=== PATIENT | female | born 1950 | race African-American/Black ===

== ENCOUNTER 2016-07-04 04:27 | Inpatient (IN) | payer BC, OTHER ==
[2016-07-02 12:33] LABS: HEMATOCRIT 38.1 % (36.0-48.0); HEMOGLOBIN 12.6 g/dL (12.0-16.0)
[2016-07-02 12:46] LABS: BUN (BLOOD UREA NITROGEN) 14 MG/DL (6-23); CALCIUM, SERUM 9.1 MG/DL (8.5-10.4); CHLORIDE, SERUM 103 MMOL/L (96-112); CO2 (CARBON DIOXIDE) 28 MMOL/L (24-34); CREATININE 1.02 MG/DL (0.55-1.02); GFR AFRICAN AMERICAN 66 ML/MIN (>=60); GFR NON AFRICAN AMERICAN 57 ML/MIN (>=60); GLUCOSE, SERUM 115 MG/DL (60-99); SODIUM, SERUM 141 MMOL/L (135-148)
--- NOTE | ~2016-07-04 | OP ---
Record Of Operation [facility] [address] [place]. [address] NAME: OLIVIA BYRNE : 46 STATUS : ADM IN PAT#: [id number] AGE: 65 ADM/REG DATE : 07/04/16 MR#: [id number] REPORT SERV DATE: 07/07/16 DICTATED BY: KARAN OREILLY DATE: 07/04/16 REPORT STATUS : Draft TRANSCRIBED BY: MODJuan DATE: 07/04/16 DATE OF PROCEDURE: 07/04/2016 PREOPERATIVE DIAGNOSES: 1. Grade 1 spondylolisthesis, L4-5. 2. Severe spinal stenosis, L4-5. POSTOPERATIVE DIAGNOSES: 1. Grade 1 spondylolisthesis, L4-5. 2. Severe spinal stenosis, L4-5. PROCEDURES: 1. Microscopic navigation-assisted surgery. 2. Anterior retroperitoneal approach for an oblique lumbar diskectomy and interbody Clydesdale cage insertion, interbody fusion at L4-5. 3. Posterior percutaneous Voyager instrumentation at L4-5. PHLEBOTOMY TECH: Arturo Hutson. ANESTHESIA: General. BLOOD LOSS: Less than 50 mL. INDICATIONS: Indications for surgery and risks were explained. They are listed in the last office note as well as history and physical. See that for detail. OPERATION IN DETAIL: Antibiotic prophylaxis given. Neurophysiology monitoring leads inserted. The patient was brought to the operative suite where general anesthetic including endotracheal intubation was administered. Gibson catheter was placed with sterile technique. The patient was placed in the lateral decubitus position. The left side was up. An axillary roll was placed. A bolster was placed at the iliac crest. Hips were left in neutral alignment, and knees were minimally extended. The trunk was then very secured and carefully taped to the bed across the top of the chest, across the iliac crest. Not only was the trunk firmly secured to the table, but also the diagnostic area including the legs also carefully taped. Isolation drapes were placed. The left side of the abdomen, left flank, left thoracolumbar spine were scrubbed with Hibiclens solution. DuraPrep was painted and sterile drapes were applied. Because of the complexity of the surgery and the need to identify correct level of surgery intraoperatively, as well as desire to carry out the safest and most precise dissection, I felt that intraoperative navigation was mandatory. A small stab wound was carried out over the left posterosuperior iliac spine. Percutaneous pin with navigational frame attached was inserted in the PSIS. Intraoperative CT scan with O-arm was obtained. CT information was used to register the navigational system. Record Of Operation [facility] [address] [address] NAME: OLIVIA BYRNE : 48 STATUS : ADM IN PAT#: [id number] AGE: 65 ADM/REG DATE : 07/04/16 MR#: [id number] REPORT SERV DATE: 07/07/16 DICTATED BY: KARAN OREILLY DATE: 07/04/16 REPORT STATUS : Draft TRANSCRIBED BY: SOLEDAD DATE: 07/04/16 With navigational assistance, I identified the L4-5 level. Approximately 7 cm anterior to the disk space at L4-5 and parallel with the disk space, I carried out a 3.5 to 4 cm slightly oblique skin incision over the left flank. The subcutaneous tissue was sharply dissected. The external oblique muscle opened bluntly followed by opening of the internal oblique muscle bluntly. I then was able to palpate with my index finger directly into the retroperitoneum. I identified the psoas muscle, the transverse process at L5, as well as the anterior border of the psoas. I then placed a lighted blunt retractor and my finance assistant retracted the psoas posteriorly while my hand and the blunt retractor remained anteriorly guarding the vessels. A navigated initial dilator was placed between the two retractors. I docked at the junction of zone 1 and 2 and after placement of the retractor, the muscle dilators were inserted followed by placement of a tubular retractor attached to an arm mount table. The microscope was sterilely draped and used throughout the remainder of the procedure. We used stimulation and stimulated inside the circumference of the retractor. No abnormalities were found. I carried out a rectangular annulectomy. After the annulectomy, a diskectomy was carried out with curettes, rongeurs, and hand instruments. I did start at the anterolateral corner moving across the disk space. I would also redirect my hand posteriorly using an orthogonal maneuver. As I crossed through the opposite contralateral side, I also released the contralateral annulus. After the diskectomy and the endplate cartilage was removed, we then carried out trials using again the same start of an anterolateral approach initially directing posteriorly with our hands and crossing the interbody space. Using the orthogonal maneuver, wounds were irrigated. The final implant, we chose a 12-degree lordotic, 12 degrees in height, 50 mm in length Clydesdale cage. The cage was filled with extra-small dosage of bone protein as well as allograft. Cage was then inserted into the proper position again using the same orthogonal maneuver and after being properly positioned, intraoperative x-ray revealed excellent position of the implants. The retractor was then slowly withdrawn. No abnormality was found. There was no tear within the esophagus. There implant complications. After removing the retractor completely, the internal and external obliques were closed with interrupted 0 PDS suture. The subcutaneous tissue was closed with 2-0 Vicryl suture. 2-0 vertical mattress nylon suture was used for skin closure. Sterile dressings were applied. The patient was then repositioned into a prone position. Bony prominences were carefully padded. Thoracolumbar spine was scrubbed with Hibiclens solution. DuraPrep was painted. Sterile drapes were applied. Once again, we re-registered the navigational system. Again with navigational assistance, just lateral to the facet joints, I carried out approximately a 2.5 to 3 cm skin incision to allow percutaneous placement of the screws and love. I used a Voyager pedicle tap and screw plant operator/shift supervisor. I tapped the pedicles at L4 and 5 bilaterally. Polyaxial Voyager screws were inserted bilaterally at L4 and 5. After all of the hardware was placed, next after placing the transpedicular screws with screw extenders, we placed a love into the top portion of the screw extenders, reduced it into the tulip of the pedicle screw. The set screw was inserted and tightened with a torque wrench. The screw extenders were removed. Intraoperative CT scan with O-arm was repeated showing good position of all implants, good muslim of the Record Of Operation [facility] [address]. [place]. [address] NAME: OLIVIA BYRNE : 46 STATUS : ADM IN [facility]#: [id number] AGE: 65 ADM/REG DATE : 07/04/16 MR#: [id number] REPORT SERV DATE: 04/10/17 DICTATED BY: KARAN OREILLY DATE: 07/04/16 REPORT STATUS : Draft TRANSCRIBED BY: MODL DATE: 07/04/16 disk height, and good muslim of lordosis. The wounds were closed with usual standard closure. Sterile dressings were applied. The patient was returned to supine position, awakened, extubated, and taken to recovery room in stable condition having tolerated the procedure well. Sponge, needle, and instrument counts were correct. No intraoperative complications noted. /SOLEDAD Karan Oreilly D.O. / [id number] CC: Karan Oreilly D.O.
--- NOTE | ~2016-07-04 | PREOPHP ---
PreOp History and Physical [facility] [address] [place]. [address] NAME: OLIVIA BYRNE : 46 STATUS : DIS IN PAT#: [id number] AGE: 65 ADM/REG DATE : 07/04/16 MR#: [id number] REPORT SERV DATE: 07/16/16 DICTATED BY: KARAN OREILLY DATE: 07/16/16 REPORT STATUS : Draft TRANSCRIBED BY: SOLEDAD DATE: 07/16/16 CHIEF COMPLAINT: Back pain, leg pain. HISTORY OF PRESENT ILLNESS: This is a very pleasant lady who has grade 1 spondylolisthesis, severe spinal stenosis as diagnosed by x-ray and MRI. She has tried conservative care and failed. The patient was brought to surgery for decompression and fusion with stabilization and per the surgical permit. She has tried conservative care and failed. Risks, benefits, alternatives, and expectations of the surgery have been explained. They are listed in the office notes; see that for detail. PAST MEDICAL HISTORY: Exogenous obesity, hypertension, and osteoarthritis. PAST SURGICAL HISTORY: Listed in the chart. MEDICATIONS LISTED: Listed in the chart. ALLERGIES: NONE. SOCIAL HISTORY AND FAMILY HISTORY: Listed in the addendum of the chart; see that for detail. PHYSICAL EXAMINATION: GENERAL: She is alert, cooperative, well oriented. Ambulates independently. HEENT: Grossly normal. LUNGS: Clear to auscultation. HEART: Regular rate and rhythm. ABDOMEN: Soft with good bowel sounds. No peritoneal signs are noted. MUSCULOSKELETAL: The spine has some deformity as she does have a forward tilt of the trunk. She has limited range of motion due to the pain. She has negative straight leg raising signs, negative femoral nerve stretch test. Patellar reflexes and Achilles reflexes are absent. Her motor strength is weak in the L4 and L5 innervated musculature. She has essentially a 4/5 strength. No sensory deficits noted. No evidence of myelopathy noted. Toes are downgoing. No ankle clonus found. Orthopedically, she has no pain with moving hips, knees, or ankles. There are good pulses in all four extremities. No abnormal skin lesions are found. ASSESSMENT AND RECOMMENDATIONS: As listed above. KARL/SOLEDAD Karan Oreilly D.O. / [id number] PreOp History and Physical [address] [address] NAME: OLIVIA BYRNE : 46 STATUS : DIS IN PAT#: [id number] AGE: 65 ADM/REG DATE : 07/04/16 MR#: [id number] REPORT SERV DATE: 07/16/16 DICTATED BY: KARAN OREILLY DATE: 07/16/16 REPORT STATUS : Draft TRANSCRIBED BY: MODL DATE: 07/16/16 CC: Beau Leung N.P.
--- NOTE | ~2016-07-04 | CN ---
Consultation Report [facility] [address] [place]. [address] NAME: OLIVIA BYRNE : 46 STATUS : ADM IN PAT#: [id number] AGE: 65 ADM/REG DATE : 07/04/16 MR#: [id number] REPORT SERV DATE: 07/04/16 DICTATED BY: TERE BROWER DATE: 07/04/16 REPORT STATUS : Draft TRANSCRIBED BY: MODL DATE: 07/04/16 CONSULTATION DATE OF CONSULTATION: 07/04/2016 REASON FOR CONSULTATION: Medical management of hypertension and diabetes. HISTORY OF PRESENT ILLNESS: The patient is a 65-year-old female. She has a past medical history significant for diabetes mellitus, insulin requiring. She also has history of hypertension, hyperlipidemia. She is status post spinal surgery today. She is being seen in the room approximately 15 minutes after arriving from postop. She is able to respond to some questions but the majority of the history is from her sister. The patient has had the above medical problems for some time as the patient family states they have been reasonably well controlled with no significant problems. She is in some pain postop and not experiencing any nausea or vomiting. She is without complaints at present. PAST MEDICAL HISTORY: As described above. PAST SURGICAL HISTORY: She has had this surgery as well as a knee repair in the past and she has had epidurals in the past. CURRENT MEDICATIONS: Aspirin 81; Tenormin 50; docusate 300; Neurontin 300 t.i.d.; hydrochlorothiazide 50; Apresoline 25 b.i.d.; Lantus 45 units a day; Humalog sliding scale, she states she averages approximately 5 to 8 units; Tradjenta 5 mg daily; lisinopril 20; Mevacor 40; Mobic 15; Percocet; potassium 10; and Desyrel 100. ALLERGIES: ARE TO TETANUS AND DIPHTHERIA AND LATEX. FAMILY HISTORY: Both parents . Mother had bone cancer. Father had brain bleeds. SOCIAL HISTORY: Positive tobacco use. Five or so cigarettes per day. No significant EtOH. REVIEW OF SYSTEMS: The patient is currently complaining of back pain. No nausea or vomiting. No recent cardiac or pulmonary complaints. The remainder of her 10-point review of systems is negative. PHYSICAL EXAMINATION: VITAL SIGNS: Postop vitals are currently pending. GENERAL: She is awake, alert, no acute distress. HEENT: Grossly unremarkable. NECK: Supple. HEART: Regular rate and rhythm. LUNGS: Clear to auscultation. ABDOMEN: Nontender. Nondistended. Consultation Report [facility] [address]. [place]. [address] NAME: OLIVIA BYRNE : 46 STATUS : ADM IN PAT#: [id number] AGE: 65 ADM/REG DATE : 07/04/16 MR#: [id number] REPORT SERV DATE: 07/04/16 DICTATED BY: TERE BROWER DATE: 07/04/16 REPORT STATUS : Draft TRANSCRIBED BY: MODJuan DATE: 07/04/16 EXTREMITIES: Without edema. LABORATORY DATA: Sodium 144, potassium 3.7, chloride 109, CO2 of 27, BUN and creatinine 18 and 0.89 with a glucose of 161. White count 6.7, H and H are 10.7 and 33.0, and platelets are 209. ASSESSMENT: Chronic medical problems as listed above. PLAN: Thank you for the consultation. We will continue to follow. We will reduce her home long-acting insulin this evening until she is awake and eating normally. We will continue sliding scale as well. Continue the home medications as appropriate. APOILNARF/SOLEDAD Tere Brower M.D. / [id number] CC: Karan Muñoz D.O.
--- NOTE | ~2016-07-04 | DS ---
Discharge Summary [facility] [id number] [place]. [address] NAME: OLIVIA BYRNE : 46 STATUS : DIS IN PAT#: [id number] AGE: 65 ADM/REG DATE : 07/04/16 MR#: [id number] REPORT SERV DATE: 07/17/16 DICTATED BY: KARAN OREILLY DATE: 07/16/16 REPORT STATUS : Draft TRANSCRIBED BY: MODL DATE: 07/16/16 ADMISSION DATE: 07/04/2016 DISCHARGE DATE: 07/08/2016 ADMISSION DIAGNOSIS: Grade 1 spondylolisthesis, severe spinal stenosis, L4-5. PROCEDURES: Microscopic and navigational-assisted surgery with an oblique lateral diskectomy, interbody cage insertion, interbody fusion at L4-5 with posterior instrumentation. COMPLICATIONS: None. LAB AND X-RAY DATA: In the chart. HOSPITAL COURSE: She had admission day surgery which was uneventful. The patient was started on antibiotics immediate postop as well as given a preop dosage per the usual protocol. After 24 hours of antibiotic, they were stopped. She was on a SNAILER pump for the initial 12-14 hours and then converted to oral medication. A Gibson was stopped the following day after surgery. Postop day 1, she was having usual expected surgical pain, but was able to start physical therapy. There were no complications found. Strength of the lower extremities was normal. The patient continued to progress with physical therapy and by postop day 3, was doing quite well with independence and transferring, had normal bowel and bladder function. Neuro function was quite normal. She had returned to her preoperative diet and medications. DISPOSITION: Discharged home, to follow up in two weeks. Resume preop medicines and preop diet. She can shower. If any problems, call the office immediately. KARL/SOLEDAD Karan Oreilly D.O. / [id number] CC: Beau Leung N.P.
[~2016-07-04 04:27] MED LIST: APRES25 PO; ATEN50 PO; DOCUSOFT S100 MG PO; ENDOCET1 TAB PO; HALF81 PO; HUMALOG SC; HYDROCHLOROT50 MG PO; K-TABS10 MEQ PO; LANTUS SC; MEVACOR40 MG PO; MOBIC15 MG PO; NEUR300 PO; PRIN20 PO; TRADJENTA5 MG PO; TRAZ100 PO
[2016-07-04 10:34] LABS: BASOPHILS 0.2 %; BASOPHILS ABSOLUTE 0.01 10/3/uL (0.0-0.16); EOSINOPHILS 1.7 %; EOSINOPHILS ABSOLUTE 0.11 10/3/uL (0.0-0.53); HEMOGLOBIN 10.7 g/dL (12.0-16.0); IMMATURE GRANULOCYTES 1.2 %; IMMATURE GRANULOCYTES ABSOLUTE 0.08 10/3/uL (0.0-0.11); MANUAL DIFF NO %; MEAN CORPUS HGB CONC 32.4 g/dL (32.0-36.0); MEAN CORPUSCULAR HEMOGLOB 32.1 pg (26.0-34.0); MEAN CORPUSCULAR VOLUME 99.1 fL (80-100); MEAN PLATELET VOLUME 8.9 fL (9.2-13.0); MONOCYTES 7.1 %; MONOCYTES ABSOLUTE 0.47 10/3/uL (0.21-1.20); NEUTROPHILS 56.8 %; NEUTROPHILS ABSOLUTE 3.79 10/3/uL (2.02-8.40); PLATELET COUNT 209 10/3/uL (150-400); RBC DISTRIBUTION WIDTH 13.9 % (12.0-16.0); RED CELL COUNT 3.33 10/6/uL (4.0-5.6); WHITE BLOOD CELLS 6.7 10/3/uL (4.5-10.5)
[2016-07-04 10:43] LABS: CALCIUM, SERUM 8.3 MG/DL (8.5-10.4); CHLORIDE, SERUM 109 MMOL/L (96-112); CO2 (CARBON DIOXIDE) 27 MMOL/L (24-34); CREATININE 0.89 MG/DL (0.55-1.02); GFR AFRICAN AMERICAN 78 ML/MIN (>=60); GFR NON AFRICAN AMERICAN 67 ML/MIN (>=60); POTASSIUM, SERUM 3.7 MMOL/L (3.5-5.3); SODIUM, SERUM 144 MMOL/L (135-148)
[2016-07-04 10:44] LABS: BUN (BLOOD UREA NITROGEN) 18 MG/DL (6-23); GLUCOSE, SERUM 161 MG/DL (60-99)
[2016-07-05 05:14] LABS: BASOPHILS 0.1 %; BASOPHILS ABSOLUTE 0.01 10/3/uL (0.0-0.16); EOSINOPHILS 1.9 %; EOSINOPHILS ABSOLUTE 0.13 10/3/uL (0.0-0.53); HEMATOCRIT 34.4 % (36.0-48.0); HEMOGLOBIN 10.8 g/dL (12.0-16.0); IMMATURE GRANULOCYTES 0.3 %; IMMATURE GRANULOCYTES ABSOLUTE 0.02 10/3/uL (0.0-0.11); LYMPHOCYTES 16.8 %; LYMPHOCYTES ABSOLUTE 1.13 10/3/uL (0.67-4.30); MANUAL DIFF NO %; MEAN CORPUS HGB CONC 31.4 g/dL (32.0-36.0); MEAN CORPUSCULAR VOLUME 102.1 fL (80-100); MEAN PLATELET VOLUME 9.1 fL (9.2-13.0); MONOCYTES 9.4 %; MONOCYTES ABSOLUTE 0.63 10/3/uL (0.21-1.20); NEUTROPHILS 71.5 %; NEUTROPHILS ABSOLUTE 4.79 10/3/uL (2.02-8.40); PLATELET COUNT 221 10/3/uL (150-400); RBC DISTRIBUTION WIDTH 14.1 % (12.0-16.0); RED CELL COUNT 3.37 10/6/uL (4.0-5.6); WHITE BLOOD CELLS 6.7 10/3/uL (4.5-10.5)
[2016-07-05 05:35] LABS: BUN (BLOOD UREA NITROGEN) 15 MG/DL (6-23); CALCIUM, SERUM 8.5 MG/DL (8.5-10.4); CHLORIDE, SERUM 106 MMOL/L (96-112); CO2 (CARBON DIOXIDE) 29 MMOL/L (24-34); CREATININE 0.92 MG/DL (0.55-1.02); GFR AFRICAN AMERICAN 75 ML/MIN (>=60); GFR NON AFRICAN AMERICAN 64 ML/MIN (>=60); POTASSIUM, SERUM 4.2 MMOL/L (3.5-5.3); SODIUM, SERUM 144 MMOL/L (135-148)
[2016-07-05 05:40] LABS: GLUCOSE, SERUM 128 MG/DL (60-99)
[2016-07-06 06:14] LABS: BASOPHILS 0.1 %; BASOPHILS ABSOLUTE 0.01 10/3/uL (0.0-0.16); EOSINOPHILS 1.1 %; HEMATOCRIT 35.2 % (36.0-48.0); HEMOGLOBIN 11.2 g/dL (12.0-16.0); IMMATURE GRANULOCYTES 0.4 %; IMMATURE GRANULOCYTES ABSOLUTE 0.04 10/3/uL (0.0-0.11); LYMPHOCYTES ABSOLUTE 1.08 10/3/uL (0.67-4.30); MEAN CORPUS HGB CONC 31.8 g/dL (32.0-36.0); MEAN CORPUSCULAR HEMOGLOB 31.8 pg (26.0-34.0); MONOCYTES 11.5 %; MONOCYTES ABSOLUTE 1.04 10/3/uL (0.21-1.20); NEUTROPHILS 74.9 %; NEUTROPHILS ABSOLUTE 6.74 10/3/uL (2.02-8.40); PLATELET COUNT 210 10/3/uL (150-400); RBC DISTRIBUTION WIDTH 13.9 % (12.0-16.0); RED CELL COUNT 3.52 10/6/uL (4.0-5.6)
[2016-07-06 06:16] LABS: MANUAL DIFF NO %
[2016-07-06 06:28] LABS: BUN (BLOOD UREA NITROGEN) 12 MG/DL (6-23); CALCIUM, SERUM 8.8 MG/DL (8.5-10.4); CHLORIDE, SERUM 106 MMOL/L (96-112); CO2 (CARBON DIOXIDE) 28 MMOL/L (24-34); GFR AFRICAN AMERICAN 88 ML/MIN (>=60); GFR NON AFRICAN AMERICAN 76 ML/MIN (>=60); GLUCOSE, SERUM 128 MG/DL (60-99); POTASSIUM, SERUM 3.6 MMOL/L (3.5-5.3); SODIUM, SERUM 142 MMOL/L (135-148)
[2016-07-08] MEDS ORDERED: OXYCOD PO (16:25)
[2016-07-08] MEDS ORDERED: METHOC750B PO (16:26)
== END 2016-07-08 16:59 | disposition home or self-care (01) | DRG 454 ==
LOC: SDC/OF 04:27 → PACU 10:11 → 3SO 11:36
PROVIDERS: Hospitalist; Orthopaedic Surgery Orthopaedic Surgery of the Spine
PROC: 4A11X4G Monitoring of Peripheral Nervous Electrical Activity, Intraoperative, External Approach (ICD-10-PCS; 2016-07-04)
PROC: 0SG00A0 Fusion of Lumbar Vertebral Joint with Interbody Fusion Device, Anterior Approach, Anterior Column, Open Approach (ICD-10-PCS; principal; 2016-07-04 06:15)
PROC: 0SG00Z1 (ICD-10-PCS; 2016-07-04 06:15)
PROC: 0ST20ZZ Resection of Lumbar Vertebral Disc, Open Approach (ICD-10-PCS; 2016-07-04 06:15)
DX: M51.36 Other intervertebral disc degeneration, lumbar region (principal); J95.89 Other postprocedural complications and disorders of respiratory system, not elsewhere classified; Z68.41 Body mass index [BMI] 40.0-44.9, adult; I10 Essential (primary) hypertension; J98.11 Atelectasis; E11.9 Type 2 diabetes mellitus without complications; E66.01 Morbid (severe) obesity due to excess calories
CPT/HCPCS: 72100; 80048; 82962; 85014; 85018; 85025; 87641; 88304; 88311; 93005; 97110-GP; 97116-GP; 97161-GP; 97530-GP; A9270-GY; C1713; J0690; J1170; J1644; J1940; J2250; J2405; J2710; J2765; J3010; J3370